=== PATIENT | female | born 2000 | race Caucasian/White ===

== ENCOUNTER → 2020-08-05 15:38 | Outpatient (REF) | payer BC, MEDICAID, SELFPAY ==
--- NOTE | 2020-08-05 | ECG_ITS ---
Test Reason : TACHYCARDIA Blood Pressure : / mmHG Vent. Rate : 067 BPM Atrial Rate : 067 BPM P-R Int : 116 ms QRS Dur : 088 ms QT Int : 426 ms P-R-T Axes : 060 049 040 degrees QTc Int : 450 ms Normal sinus rhythm Normal ECG No previous ECGs available Referred By: Lizabeth Arredondo Electronically Signed By:PO HERNDON
== END ==
LOC: HO.CARD 15:38
PROVIDERS: Visit Provider Nurse Practitioner Pediatrics
DX: R00.0 Tachycardia, unspecified (principal)
CPT/HCPCS: 93005